=== PATIENT | female | born 2000 | race Caucasian/White ===

== ENCOUNTER 2018-04-11 19:35 | Emergency (ER) | payer SELFPAY ==
[~2018-04-11] VITALS: Ht 152.4 cm; Wt 72.7 kg
[2018-04-11 19:47] VITALS: Ht 152.4 cm; Wt 72.7 kg
[2018-04-11] MEDS ORDERED: TORADOL10 MG PO (21:08)
[2018-04-11 21:29] VITALS: BP 127/77
== END 2018-04-11 21:28 | disposition home or self-care (01) ==
LOC: D.ER 19:35
DX: M54.5 Low back pain (principal); M79.604 Pain in right leg; F17.200 Nicotine dependence, unspecified, uncomplicated

== ENCOUNTER 2020-07-07 14:45 | Emergency (ER) | payer MEDICAID ==
[~2020-07-07] VITALS: Ht 152.4 cm; Wt 65.9 kg
[~2020-07-07 14:45] MED LIST: OMEPRAZOLE20 M1 PO; STERAPRED 5MG 65 M1 PO; TORADOL10 MG PO; VOLTAREN75 MG PO; ZANAFLEX4 MG PO
[2020-07-07 15:14] VITALS: BP 159/100; Ht 152.4 cm; Wt 65.9 kg
[2020-07-07] MEDS ORDERED: GABAPENTIN100 MG PO (15:16)
[2020-07-07] MEDS ORDERED: MOBIC7.5 MG PO (15:16)
[2020-07-07] MEDS ORDERED: BC PILL (15:17)
[2020-07-07 15:53] LABS: BASOPHILS 0.2 % (0-2); EOSINOPHILS 0.7 % (0-7); HEMATOCRIT 39.6 % (36.0-48.0); HEMOGLOBIN 13.7 g/dL (12-16); IMMATURE GRANULOCYTES 0.2 % (0-5); LYMPHOCYTE ABS# 2.06 10x3/uL (1.18-3.74); LYMPHOCYTES 15.5 % (15-50); MCH 31.3 pg (26.0-34.0); MCHC 34.6 g/dL (31.0-37.0); MCV 90.4 fL (80.0-100.0); MEAN PLATELET VOLUME 8.8 fL (7.4-10.4); NEUTROPHIL ABS# 10.41 10x3/uL (1.56-6.13); NEUTROPHILS 78.4 % (40-80); PLATELET COUNT 385 10x3/uL (130-400); RBC 4.38 10x6/uL (4.00-5.40); RDW 12.5 % (11.5-14.5); WBC 13.3 10x3/uL (4.8-10.8)
[2020-07-07 15:56] LABS: UDS - AMPHET NEGATIVE QUAL (NEGATIVE); UDS - BARB NEGATIVE QUAL (NEGATIVE); UDS - BENZO POSITIVE QUAL (NEGATIVE); UDS - COCAINE NEGATIVE QUAL (NEGATIVE); UDS - OPIATE NEGATIVE QUAL (NEGATIVE); UDS - PCP NEGATIVE QUAL (NEGATIVE); UDS - THC POSITIVE QUAL (NEGATIVE)
[2020-07-07 15:59] LABS: CALC OSMOLALITY 278 mosm/kg (275-300); CALCIUM 8.9 mg/dL (8.5-10.1); CARBON DIOXIDE 22.7 mmol/L (21.0-32.0); CHLORIDE - SERUM 107 mmol/L (98-107); CREATININE - SERUM 0.8 mg/dL (0.6-1.3); GLUCOSE 78 mg/dL (74-106); POTASSIUM - SERUM 3.6 mmol/L (3.5-5.1); SODIUM 141 mmol/L (136-145); UREA NITROGEN 10 mg/dL (7-18); eGFR NON AFRICAN AMERICAN > 90 mL/min (90-120)
[2020-07-07 16:01] LABS: BILIRUBIN NEGATIVE (NEGATIVE); KETONE NEGATIVE (NEGATIVE); NITRITE NEGATIVE (NEGATIVE); UROBILINOGEN NORMAL mg/dL (< 2)
[2020-07-07 16:02] LABS: BACTERIA MODERATE HPF (NONE SEEN); HCG URINE NEGATIVE (NEGATIVE); SQUAMOUS EPITHELIAL 0-5 HPF (0-4); WHITE CELLS - URINE 0-5 HPF (0-4)
[2020-07-07 16:04] LABS: ALBUMIN 4.2 g/dL (3.4-5.0); ALKALINE PHOSPHATASE 49 U/L (30-120); ALT (SGPT) 18 U/L (10-68); BILIRUBIN - TOTAL 0.24 mg/dL (0.2-1.3); PROTEIN - SERUM 7.5 g/dL (6.4-8.2)
[2020-07-07 17:05] LABS: SARS-CoV-2 ANTIGEN NEGATIVE- SARS-COV-2 (NEGATIVE)
--- NOTE | 2020-07-07 17:34 | NUR ---
DR. DRIVER NOTIFIED AND SITTER ORDERED. SITTER IN LINE OF SIGHT. NOTIFIED CHARGE NURSE AND ATTENDING IN REGARDS TO ASSESSMENTS FINDINGS. RESOUCRES GIVEN TO PT AND SAFETY PLAN INITIATED. PT STATED SHE HAD AN INCIDENT IN APRIL AND SOUGHT HELP BUT WAS UNABLE TO OBTAIN HELP DUE TO A SURGERY. 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
== END 2020-07-07 18:42 ==
LOC: D.ER 14:45
PROVIDERS: Family Medicine
DX: R45.851 Suicidal ideations (principal); F41.8 Other specified anxiety disorders; G62.9 Polyneuropathy, unspecified